=== PATIENT | female | born 1970 ===

== ENCOUNTER 2020-11-17 15:18 | Emergency (ER) | payer SELFPAY ==
[2020-11-17 17:04] LABS: Bacteria,Urine 1+ /HPF (Negative); Bilirubin,Urine NEG (Negative); Blood,Urine NEG (Negative); Color,Urine Amber (Yellow); Mucus,Urine FEW /HPF; Urobilinogen,Urine < 2.0 mg/dL (<2.0)
[2020-11-17 17:10] LABS: Hematocrit 38.5 % (30.3-42.9); Hemoglobin 12.7 gm/dl (10.1-14.3); Mean Corpuscular HGB Conc 33 % (30-34); Mean Corpuscular Volume 84 fl (79-97); Platelet Count 121 K/mm3 (140-440); Red Blood Count 4.56 M/mm3 (3.65-5.03); Red Cell Distribution Width 16.7 % (13.2-15.2)
[2020-11-17 17:12] LABS: Albumin 3.6 g/dL (3.9-5); Calcium 8.6 mg/dL (8.4-10.2)
[2020-11-17] MEDS ORDERED: SODIUM CHLORIDE 0.9% 1000 ML 1,000 ML IV ONE (17:48)
[2020-11-17] MEDS ORDERED: FAMOTIDINE 20 MG/2 ML INJ IV ONE (17:48)
[2020-11-17] MEDS ORDERED: ONDANSETRON 4 MG/2 ML INJ IV ONE (17:48)
[2020-11-17] MEDS ORDERED: KETOROLAC 30 MG/1 ML INJ IV ONE (17:48)
[2020-11-17] MEDS ORDERED: MORPHINE 4 MG/1 ML INJ IV ONE (17:48)
--- NOTE | 2020-11-17 18:45 | Emergency Department Report ---
ED Abdominal Pain HPI - General Chief Complaint: Abdominal Pain Stated Complaint: SOB/GALBLADDER PAIN/VOMIT BLOOD Time Seen by Provider: 11/17/20 17:38 Source: patient Mode of arrival: Ambulatory Limitations: No Limitations - History of Present Illness Initial Comments: Patient is a 50-year-old F [place]ican female who is presenting with right upper quadrant pain for approximately 2 months. She believes is gallbladder pain. She has not seen anyone for this pain as of yet. She has not had any ultrasounds. Patient states pain is off and on for the past 2 months but is worsened over the last week. Patient states that for the last week she has had increased pain which is 8 out of 10 in severity. She has had nausea vomiting and diarrhea. States is bright red blood streaking in her vomit. She is also noticing some mild blood in her stool with wiping. Pain does not radiate. She denies being able to eat for the last at least 4 days. States there is no fevers chills. - Related Data Previous Rx's Medication Instructions Recorded Last Taken Type Dicyclomine [Bentyl] 20 mg PO QID #10 tablet 11/17/20 Unknown Rx HYDROcodone/APAP 5-325 [[place] 1 each PO Q6HR PRN #14 tablet 11/17/20 Unknown Rx 5/325] Ondansetron [Zofran Odt] 4 mg PO Q8HR #10 tab.rapdis 11/17/20 Unknown Rx Pantoprazole [Protonix] 40 mg PO QDAY #30 tablet 11/17/20 Unknown Rx Allergies Allergy/AdvReac Type Severity Reaction Status Date / Time Penicillins Allergy Rash Verified 11/17/20 16:17 ED Review of Systems ROS: Stated complaint: SOB/GALBLADDER PAIN/VOMIT BLOOD Other details as noted in HPI Comment: All other systems reviewed and negative ED Past Medical Hx - Past Medical History Previous Medical History?: Yes Hx Hypertension: Yes Additional medical history: Gallbladder, Hx of fibroid tumors - Surgical History Past Surgical History?: Yes - Social History Smoking Status: Never Smoker Substance Use Type: None - Medications Home Medications: Home Medications Medication Instructions Recorded Confirmed Last Taken Type Dicyclomine [Bentyl] 20 mg PO QID #10 tablet 11/17/20 Unknown Rx HYDROcodone/APAP 5-325 [[place] 1 each PO Q6HR PRN #14 tablet 11/17/20 Unknown Rx 5/325] Ondansetron [Zofran Odt] 4 mg PO Q8HR #10 tab.rapdis 11/17/20 Unknown Rx Pantoprazole [Protonix] 40 mg PO QDAY #30 tablet 11/17/20 Unknown Rx ED Physical Exam - General Limitations: No Limitations General appearance: alert, in no apparent distress - Head Head exam: Present: atraumatic, normocephalic - Eye Eye exam: Present: normal appearance, PERRL, EOMI - ENT ENT exam: Present: mucous membranes moist - Neck Neck exam: Present: normal inspection - Respiratory Respiratory exam: Present: normal lung sounds bilaterally. Absent: respiratory distress, wheezes, rales, rhonchi - Cardiovascular Cardiovascular Exam: Present: regular rate, normal rhythm, normal heart sounds. Absent: systolic murmur, diastolic murmur, rubs, gallop - GI/Abdominal GI/Abdominal exam: Present: soft, tenderness (ruq), normal bowel sounds. Absent: distended, guarding, rebound, rigid - Extremities Exam Extremities exam: Present: normal inspection - Back Exam Back exam: Present: normal inspection - Neurological Exam Neurological exam: Present: alert, oriented X3 - Psychiatric Psychiatric exam: Present: normal affect, normal mood - Skin Skin exam: Present: warm, dry, intact, normal color. Absent: rash ED Medical Decision Making - Lab Data Result diagrams: 11/17/20 16:40 11/17/20 16:40 Lab Results 11/17/20 11/17/20 11/17/20 Range/Units 16:40 16:40 Unknown WBC 3.3 L (4.5-11.0) K/mm3 RBC 4.56 (3.65-5.03) M/mm3 Hgb 12.7 (10.1-14.3) gm/dl Hct 38.5 (30.3-42.9) % MCV 84 (79-97) fl MCH 28 (28-32) pg MCHC 33 (30-34) % RDW 16.7 H (13.2-15.2) % Plt Count 121 L (140-440) K/mm3 [place] % (Auto) Weigh Box Tender Sodium 134 L (137-145) mmol/L Potassium 3.7 (3.6-5.0) mmol/L Chloride 99.3 (98-107) mmol/L Carbon Dioxide 25 (22-30) mmol/L Anion Gap 13 mmol/L BUN 15 (7-17) mg/dL Creatinine 1.4 H (0.6-1.2) mg/dL Estimated GFR 40 ml/min BUN/Creatinine Ratio 11 % Glucose 94 (65-100) mg/dL Calcium 8.6 (8.4-10.2) mg/dL Total Bilirubin 0.40 (0.1-1.2) mg/dL AST 29 (5-40) units/L ALT 15 (7-56) units/L Alkaline Phosphatase 70 (35-129) units/L Total Protein 8.2 (6.3-8.2) g/dL Albumin 3.6 L (3.9-5) g/dL Albumin/Globulin Ratio 0.8 % Lipase 79 H (13-60) units/L Urine Color [place]en (Yellow) Urine Turbidity Slightly-cloudy (Clear) Urine pH 5.0 (5.0-7.0) Ur Specific [place] 1.017 (1.003-1.030) Urine Protein 30 mg/dl (Negative) mg/dL Urine Glucose (UA) Neg (Negative) mg/dL Urine Ketones Neg (Negative) mg/dL Urine Blood Neg (Negative) Urine Nitrite Neg (Negative) Urine Bilirubin Neg (Negative) Urine Urobilinogen < 2.0 (<2.0) mg/dL Ur Leukocyte Esterase Neg (Negative) Urine WBC (Auto) 6.0 (0.0-6.0) /HPF Urine RBC (Auto) 12.0 (0.0-6.0) /HPF U Epithel Cells (Auto) 9.0 (0-13.0) /HPF Urine Bacteria (Auto) 1+ (Negative) /HPF Urine Mucus Few /HPF - Radiology Data ULTRASOUND ABDOMEN, LIMITED (RIGHT UPPER QUADRANT) INDICATION: RUQ pain. COMPARISON: None available. FINDINGS: Pancreas: Visualized portion shows no significant abnormality. Liver: Normal. Gallbladder: Gallbladder wall is upper limits of normal in thickness. There is no pericholecystic fluid. No gallstones are seen. Bile ducts: Normal. Common Bile Duct measures 2 mm. Free fluid: None. Additional Findings: None. IMPRESSION: There is mild prominence of the gallbladder wall. This is not specific. If there is clinical concern for cholecystitis, nuclear medicine HIDA scan can be obtained. No gallstones are seen. There is no biliary dilatation Signer Name: John Pace MD Signed: 11/17/2020 5:54 PM Workstation Name: [id number] - Medical Decision Making Patient's gallbladder does appear prominent on ultrasound but no gallstones are seen. Patient likely will need a HIDA scan. Lipase is on upper limits of normal suggesting that there is some issue dysfunction with the gallbladder. Symptoms have been present for approximately 2 months do believe the patient is stable for discharge. White count is normal and she is afebrile. Patient was a difficult stick and the nursing staff were unable to obtain a line. Meds were changed to IM. Patient will be discharged home. Critical care attestation.: If time is entered above; I have spent that time in minutes in the direct care of this critically ill patient, excluding procedure time. ED Disposition Clinical Impression: Biliary colic, Nausea, Acute gastritis Disposition: - TO HOME OR SELFCARE Is pt being admited?: No Does the pt Need Aspirin: No Condition: Stable Instructions: Abdominal Pain (ED), Nausea and Vomiting, Adult, Gastritis, Adult, [id number], Cholelithiasis, [id number] Additional Instructions: Although no gallstones were seen at this time information for gallstones has been given. There are some conditions and some instances where gallstones are missed on ultrasound. Please follow-up with the lead tank mechanic listed on your discharge paperwork Referrals: [facility] [Provider Group] - 3-5 Days Time of Disposition: 19:20
--- NOTE | 2020-11-17 18:58 | Ultrasound Report ---
ULTRASOUND ABDOMEN, LIMITED (RIGHT UPPER QUADRANT) INDICATION: RUQ pain. COMPARISON: None available. FINDINGS: Pancreas: Visualized portion shows no significant abnormality. Liver: Normal. Gallbladder: Gallbladder wall is upper limits of normal in thickness. There is no pericholecystic flu id. No gallstones are seen. Bile ducts: Normal. Common Bile Duct measures 2 mm. Free fluid: None. Additional Findings: None. IMPRESSION: There is mild prominence of the gallbladder wall. This is not specific. If there is clinical concern for cholecystitis, nuclear medicine HIDA scan can be obtained. No gallstones are seen. There is no biliary dilatation Signer Name: oJhn Pace MD Signed: 11/17/2020 6:54 PM Workstation Name: [id number]
[2020-11-17] MEDS ORDERED: ONDANSETRON 4 MG/2 ML INJ IM ONE (19:14)
[2020-11-17] MEDS ORDERED: MORPHINE 4 MG/1 ML INJ IM ONE (19:14)
[2020-11-17] MEDS ORDERED: KETOROLAC 60 MG/2 ML INJ IM ONE (19:14)
[2020-11-17 20:15] VITALS: BP 132/74
[2020-11-17 21:54] LABS: Band Neutrophils # (Manual) 0.1 K/mm3; Total Cells Counted 100
[2020-11-17 21:55] LABS: Platelet Estimate Consistent w Auto
== END 2020-11-17 20:14 | disposition home or self-care (01) ==
LOC: ED 15:18
DX: K80.50 Calculus of bile duct without cholangitis or cholecystitis without obstruction (principal); K29.00 Acute gastritis without bleeding; I10 Essential (primary) hypertension; Z88.0 Allergy status to penicillin
CPT/HCPCS: 36415; 76705; 80053; 81001; 83690; 85007; 85025; 96372; 99284; J1885; J2270; J2405; J7030

== ENCOUNTER 2021-09-30 11:30 | Emergency (ER) | payer OTHER ==
[2021-09-30 12:41] VITALS: BP 128/85
--- NOTE | 2021-09-30 13:09 | Emergency Department Report ---
ED Chest Pain HPI - General Chief Complaint: Chest Pain Stated Complaint: CHEST PAIN/STOMACH PAIN Time Seen by Provider: 09/30/21 11:55 Source: patient Mode of arrival: Ambulatory Limitations: No Limitations - History of Present Illness Initial Comments: 50-year-old female, history of rheumatoid arthritis, hypertension, presents to ED with complaint of chest pain and right upper quadrant abdominal pain. Patient states chest pain has been ongoing x2 weeks. She describes it as tightness, worse at night. She denies any associated nausea, vomiting, d iaphoresis, shortness of breath. States pain is located substernally. Patient also reports some right upper quadrant pain. Patient states this pain has been present, off and on, over the last several years, but worse over the last 2 weeks. MD Complaint: chest pain -: week(s) (2) Onset: during rest Pain Location: substernal Pain Radiation: none Severity: moderate Quality: tightness Consistency: intermittent, now resolved Improves With: nothing Worsens With: supine re: denies: nausea, vomting, diaphoresis, dyspnea Other Symptoms: denies: cough, fever, leg swelling - Related Data Previous Rx's Medication Instructions Recorded Last Taken Type Dicyclomine [Bentyl] 20 mg PO QID #10 tablet 11/17/20 Unknown Rx HYDROcodone/APAP 5-325 [[place] 1 each PO Q6HR PRN #14 tablet 11/17/20 Unknown Rx 5/325] Ondansetron [Zofran Odt] 4 mg PO Q8HR #10 tab.rapdis 11/17/20 Unknown Rx Pantoprazole [Protonix] 40 mg PO QDAY #30 tablet 11/17/20 Unknown Rx Allergies Allergy/AdvReac Type Severity Reaction Status Date / Time Penicillins Allergy Rash Verified 11/17/20 16:17 Heart Score - HEART Score History: Slightly suspicious EKG: Normal Age: 45-65 Risk factors: > 3 risk factors or hx of atherosclerotic disease Troponin: < normal limit HEART Score: 3 - EKG Read Time Time EKG Completed: 11:51 EKG Read Time: 11:56 ED Review of Systems ROS: Stated complaint: CHEST PAIN/STOMACH PAIN Other details as noted in HPI Comment: All other systems reviewed and negative Constitutional: denies: fever Respiratory: denies: shortness of breath Cardiovascular: chest pain Gastrointestinal: abdominal pain. denies: nausea, vomiting ED Past Medical Hx - Past Medical History Hx Hypertension: Yes Additional medical history: Gallbladder, Hx of fibroid tumors - Surgical History Additional Surgical History: fibriodectomy - Social History Smoking Status: Never Smoker Substance Use Type: None - Medications Home Medications: Home Medications Medication Instructions Recorded Confirmed Last Taken Type Dicyclomine [Bentyl] 20 mg PO QID #10 tablet 11/17/20 Unknown Rx HYDROcodone/APAP 5-325 [[place] 1 each PO Q6HR PRN #14 tablet 11/17/20 Unknown Rx 5/325] Ondansetron [Zofran Odt] 4 mg PO Q8HR #10 tab.rapdis 11/17/20 Unknown Rx Pantoprazole [Protonix] 40 mg PO QDAY #30 tablet 11/17/20 Unknown Rx ED Physical Exam - General Limitations: No Limitations General appearance: alert, in no apparent distress, obese - Head Head exam: Present: atraumatic, normocephalic - Eye Eye exam: Present: normal appearance, EOMI - ENT ENT exam: Present: mucous membranes moist - Neck Neck exam: Present: normal inspection - Respiratory Respiratory exam: Present: normal lung sounds bilaterally, chest wall tenderness. Absent: respiratory distress - Cardiovascular Cardiovascular Exam: Present: regular rate, normal rhythm - GI/Abdominal GI/Abdominal exam: Present: soft, tenderness (Mild right upper quadrant tenderness). Absent: distended - Extremities Exam Extremities exam: Present: normal inspection. Absent: calf tenderness - Neurological Exam Neurological exam: Present: alert, oriented X3 - Psychiatric Psychiatric exam: Present: normal affect, normal mood - Skin Skin exam: Present: warm, dry, intact, normal color ED Course Vital Signs 09/30/21 11:39 Temperature 98.5 F Pulse Rate 75 Respiratory 18 Rate Blood Pressure 128/85 O2 Sat by Pulse 97 Oximetry ED Medical Decision Making - Lab Data Result diagrams: 09/30/21 12:19 09/30/21 12:19 - EKG Data -: EKG Interpreted by Dc EKG shows normal: sinus rhythm, axis, intervals, QRS complexes, ST-T waves Rate: normal - EKG Data Interpretation: no acute changes - Radiology Data Radiology results: report reviewed, image reviewed - Medical Decision Making 50-year-old female presents to ED with complaint of chest pain and right upper quadrant abdominal pain x2 weeks. Patient reports chest pain is worse at night. Vital signs are normal. No chest pain at this time. EKG is unremarkable. Troponin is negative. Remainder of labs are unremarkable. Chest x-ray normal. Patient advised to follow-up on an outpatient basis. Patient in for fax to [facility] for urgent cardiology follow-up. - Differential Diagnosis ACS, GERD, gallstones, pancreatitis Critical care attestation.: If time is entered above; I have spent that time in minutes in the direct care of this critically ill patient, excluding procedure time. ED Disposition Clinical Impression: Chest pain, Abdominal pain Disposition: 01 HOME / SELF CARE / HOMELESS Is pt being admited?: No Condition: Undetermined Instructions: Food Choices for Gastroesophageal Reflux Disease, Adult, [id number], Nonspecific Chest Pain, Adult, Abdominal Pain, Adult, [id number], Gastroesophageal Reflux Disease, Adult, [id number] Referrals: PRIMARY CARE, [Primary Care Provider] - 3-5 Days [facility] [Provider Group] - 3-5 Days [facility] [Provider Group] - 3-5 Days Time of Disposition: 13:58
[2021-09-30 13:25] LABS: Basophils % (Auto) 0.4 % (0.0-1.8); Eosinophils # (Auto) 0.2 K/mm3 (0.0-0.4); Eosinophils % (Auto) 4.4 % (0.0-4.3); Hematocrit 35.6 % (30.3-42.9); Hemoglobin 11.3 gm/dl (10.1-14.3); Lymphocytes # (Auto) 1.3 K/mm3 (1.2-5.4); Lymphocytes % (Auto) 29.6 % (13.4-35.0); Mean Corpuscular HGB Conc 32 % (30-34); Mean Corpuscular Volume 85 fl (79-97); Monocytes # (Auto) 0.3 K/mm3 (0.0-0.8); Monocytes % (Auto) 7.9 % (0.0-7.3); Platelet Count 199 K/mm3 (140-440); Red Blood Count 4.21 M/mm3 (3.65-5.03); Red Cell Distribution Width 17.2 % (13.2-15.2)
[2021-09-30 13:31] LABS: Alanine Aminotransferase 14 units/L (7-56); Albumin 3.6 g/dL (3.9-5); Blood Urea Nitrogen 10 mg/dL (7-17); Calcium 9.1 mg/dL (8.4-10.2); Hemolysis Index 7
[2021-09-30 13:33] LABS: BUN/Creatinine Ratio 17; Bilirubin,Direct < 0.2 mg/dL (0-0.2)
--- NOTE | 2021-09-30 13:37 | XRay Report ---
XR chest routine 2V INDICATION / CLINICAL INFORMATION: Chest Pain. COMPARISON: None available. FINDINGS: SUPPORT DEVICES: None. HEART /PULMONARY VASCULATURE: No significant abnormality. LUNGS / PLEURA: No significant pulmonary or pleural abnormality. No pneumothorax. ADDITIONAL FINDINGS: No significant additional findings. IMPRESSION: 1. No acute findings. Signer Name: Minesh Oden MD Signed: 09/30/2021 1:33 PM Workstation Name: [id number]
--- NOTE | 2021-10-01 09:08 | Electrocardiograph Report ---
[facility] Test Date: 2021-09-30 Test Time: 11:51:44 Pat Name: RE JARQUIN Department: Room: Gender: F Regrader: REJI : 1970 Requested By: SOHEILA STATON Order Number: [id number] Reading MD: Niles Pandey Measurements Intervals [place] Rate: 72 P: 47 MN: 164 QRS: -26 QRSD: 100 T: 11 QT: 410 QTc: 449 Interpretive Statements Sinus rhythm nonspecific st-t No previous ECG available for comparison Electronically Signed On 10-01-2021 9:08:24 EDT by Niles Pandey
== END 2021-09-30 16:15 | disposition home or self-care (01) ==
LOC: ED 11:30
DX: R07.9 Chest pain, unspecified (principal); R10.84 Generalized abdominal pain; Z88.0 Allergy status to penicillin; I10 Essential (primary) hypertension
CPT/HCPCS: 36415; 71046; 80048; 80076; 83690; 84484; 85025; 93005; 99283